=== PATIENT | female | born 1965 | race Caucasian/White ===

== ENCOUNTER 2021-06-08 01:44 | Emergency (ER) | payer BC ==
[~2021-06-08] VITALS: Ht 152.4 cm; Wt 64.0 kg
[2021-06-08 01:46] VITALS: BP 177/76
[2021-06-08] MEDS ORDERED: LIDOCAINE HCL/EPINEPHRINE 1%-EPI 1:100,000 20 ML VIAL INFIL ONE (02:15)
[2021-06-08] MEDS ORDERED: SODIUM CHLORIDE 0.9% 1,000 ML IV ONE (02:15)
[2021-06-08] MEDS ORDERED: LIDOCAINE HCL/EPINEPHRINE 1%-EPI 1:100,000 10 ML VIAL INFIL SCH (02:45)
[2021-06-08] MEDS ORDERED: INSULIN REGULAR (HUMULIN R) 300UNITS/3ML VIAL SUBCUT ONE (03:30)
[2021-06-08] MEDS ORDERED: BACITRACIN ZINC OINT UDPKT TOP ONE (04:00)
[2021-06-08 04:02] LABS: BASOPHILS % 0.4 % (0.0-2.0); EOSINOPHILS % 0.8 % (0.0-5.0); HEMATOCRIT. 35.3 % (36.0-48.0); HEMOGLOBIN. 11.2 g/dL (12.0-16.0); LYMPHOCYTES % 23.6 % (20.0-50.0); MEAN CORPUSCULAR HEMOGLOBIN 24.3 pg (28.0-32.0); MEAN CORPUSCULAR VOLUME 76.7 fL (81.0-99.0); MEAN PLATELET VOLUME 8.4 fl (7.4-10.4); MONOCYTES % 4.2 % (2.0-8.0); PLATELET 332 x1000/uL (130-400); RED CELL DISTRIBUTION WIDTH 14.2 % (11.6-14.6)
[2021-06-08] MEDS ORDERED: ACET-2708 PO (04:07)
[2021-06-08 04:09] LABS: CHLORIDE 102 mEq/L (98-107)
== END 2021-06-08 05:50 | disposition home or self-care (01) ==
LOC: ER 01:44
DX: S61.412A Laceration without foreign body of left hand, initial encounter (principal); E11.65 Type 2 diabetes mellitus with hyperglycemia; Z79.84 Long term (current) use of oral hypoglycemic drugs; W26.8XXA Contact with other sharp object(s), not elsewhere classified, initial encounter; Y93.89 Activity, other specified; Y92.011 Dining room of single-family (private) house as the place of occurrence of the external cause
CPT/HCPCS: 12002; 36415; 80053; 82962; 85025; 96360; 96372; 99283; J1815; J3490; J7030